=== PATIENT | female | born 1970 | race African-American/Black ===

== ENCOUNTER 2019-09-23 04:58 | Day surgery (SDC) | payer BC ==
[2019-09-22 08:47] VITALS: BMI 29.0
[2019-09-23] MEDS ORDERED: LIDOCAINE HCL 1%, 10 MG/ML (20ML VIAL) ONE (08:40)
[2019-09-23] MEDS ORDERED: LIDOCAINE HCL/PF 2% SDV 5ML VIAL ONE (08:51)
[2019-09-23] MEDS ORDERED: MIDAZOLAM HCL 2 MG/2 ML SINGLE DOSE VIAL ONE (08:52)
[2019-09-23] MEDS ORDERED: PROPOFOL 20 ML ONE ×2 (08:52)
[2019-09-23] MEDS ORDERED: IBUPROFEN 800 MG/8 ML IJ IVPB PRN (09:03)
[2019-09-23] MEDS ORDERED: oxyCODONE HCL 5 MG TABLET PO PRN (09:03)
[2019-09-23] MEDS ORDERED: ONDANSETRON 4 MG/2 ML VIAL IVPUSH PRN (09:03)
[2019-09-23] MEDS ORDERED: ACETAMINOPHEN 325 MG TABLET (FP) PO PRN (09:03)
[2019-09-23] MEDS ORDERED: LACTATED RINGERS SOLUTION 1,000 ML IV SCH ×2 (09:15→11:00)
[2019-09-23] MEDS ORDERED: LIDOCAINE 1%-EPI 1:100,000 30 ML MDV IJ ONE (09:20)
[2019-09-23] MEDS ORDERED: ceFAZolin SODIUM 1 GM VIAL ONE (09:32)
[2019-09-23] MEDS ORDERED: ceFAZolin SODIUM 1 GM VIAL IVPB ONE (09:35)
[2019-09-23] MEDS ORDERED: KETOROLAC TROMETHAMINE 30 MG/1 ML VIAL ONE ×2 (09:40→10:08)
[2019-09-23] MEDS ORDERED: LIDOCAINE 1%/EPI 1:100000 (20 ML MULTI DOSE VIAL) INF ONE ×2 (09:46)
[2019-09-23] MEDS ORDERED: BUPIVACAINE HCL/PF 0.5% (5MG/ML) 10 ML VIAL IJ ONE ×2 (09:46)
[2019-09-23] MEDS ORDERED: TRIAMCINOLONE ACET 40MG/1ML VIAL ONE (10:24)
[2019-09-23] MEDS ORDERED: SODIUM CHLORIDE 0.9% P/F 10 ML VIAL IJ ONE (10:27)
[2019-09-23] MEDS ORDERED: TRIAMCINOLONE ACETONIDE 40 MG/ML 10 ML VIAL IJ ONE (10:30)
[2019-09-23 11:51] VITALS: TEMP 97.4
[2019-09-23 13:04] VITALS: BP 110/71; PULSE 66
--- NOTE | 2019-09-23 14:04 | OP ---
DATE OF OPERATION: 09/23/2019 SURGICAL ATTENDING: Margarita Calderon MD PREOPERATIVE DIAGNOSIS: Left neck mass. POSTOPERATIVE DIAGNOSIS: Left neck mass. ANESTHESIA: Local with sedation. PROCEDURE: Left neck mass excision. DESCRIPTION OF PROCEDURE: The patient was taken into the operating room, placed in a supine position. Given IV sedation, IV antibiotics. Prepped and draped in the usual sterile fashion. Local anesthesia was administered. A 5-cm incision was made in a left supraclavicular neck skin crease and carried down through subcutaneous tissues and platysma. A fatty mass was identified in the left supraclavicular region and dissected free from surrounding tissues and removed. One large vein was clamped, cut, and tied. The area of the accessory nerve was deliberately avoided. The specimen was removed and sent to Pathology for evaluation. Hemostasis was achieved with electrocautery. Valsalva maneuver was performed, and no bleeding was seen. Pressure was held for 5 minutes with gauze. The wound was then closed in 2 layers with Vicryl and Monocryl. Kenalog was then injected into the wound based on the patient's prior keloid formation. Dermabond was placed. The patient was then awakened and taken to recovery in stable condition. Dr. Calderon, the attending surgeon, was present throughout the entire procedure. MARGARITA CALDERON M.D. [id number]
--- NOTE | 2019-09-28 19:26 | PATH ---
Surgical Pathology Report Patient Name: LILIAM GONZALEZ [facility]. Rec. #: [id number] /Age/Gender: 1970 (Age: 49) / F Account: [id number] Location: [facility] SURGICAL Taken: 09/23/2019 Received: 09/23/2019 Reported: 09/28/2019 Physicians: Fritz Olsen M.D. Specimen(s) Received LEFT NECK MASS Clinical History Mass in left supraclavicular region Final Diagnosis LEFT NECK MASS, EXCISION: MATURE ADIPOSE TISSUE, CONSISTENT WITH LIPOMA. Electronically Signed Elida Bernabe M.D. Gross Description Received in formalin labeled "left neck mass," is an 8.8 x 7.0 x 2.0 cm aggregate of multiple unoriented portions of yellow, lobulated adipose tissue. Sectioning reveals homogeneous yellow, smooth fat. No areas of hemorrhage or necrosis are identified. [employer] sections are submitted in 4 cassettes. /09/26/2019 saudi/09/26/2019
== END 2019-09-23 12:55 | disposition home or self-care (01) ==
LOC: JASU-SURG 04:58
PROVIDERS: ATTEND Surgery
PROC: 0JB50ZZ Excision of Left Neck Subcutaneous Tissue and Fascia, Open Approach (ICD-10-PCS; principal; 2019-09-23 09:00)
DX: D48.1 Neoplasm of uncertain behavior of connective and other soft tissue (principal)
CPT/HCPCS: 88304-TC; 94760